=== PATIENT | female | born 1935 | race Caucasian/White ===

== ENCOUNTER 2022-02-16 19:16 | Emergency (ER) | payer OTHER ==
--- OUTSIDE RECORDS SUMMARY | 2022-02-16 19:20 | XMS REPORT | Continuity of Care Document ---
:1935 Author Organization [facility] t Address [address] [place] [address] Care Team Providers Name Role Phone AudeliaJulissa Prabhakar Primary Care Physician Unavailable Problems Condition Condition Condition Status Onset Resolution Last Treating Co mments Source Name Details Category Date Date Treatment Clinician Date Diplopia Diplopia Disease Active Metho di 12-25 00:00: Hospita 00 l Screening Screening Problem Active Com mon mammogram, mammogram, Sp rodney encounter encounter - CH I for for [facility] Pancreatic Pancreatic Problem Active C ommon cyst cyst [facility] Chronic Chronic Problem Active Common sinusitis sinusitis Spir it [facility] Other Other Problem Active Common osteoporos osteoporos Sp rodney is is [facility] Chronic Chronic Problem Active Common generalize generalize Sp rodney d pain d pain [facility] CKD CKD Problem Active Common (chronic (chronic [facility] kidney kidney - [facility] disease) disease) stage 3, stage 3[facility] GFR 30-59 GFR 30-59 Medi juany ml/min ml/min [place] [facility]por[facility] 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) [facility] Acquired Acquired Problem Active Commo n hypothyroi hypothyroi Sp rodney dism dism [facility] GERD GERD Problem Active Common (gastroeso (gastroeso Sp ordney phageal phageal - [facility]I reflux reflux St disease) disease) [facility] Anemia Anemia Problem Active Common [facility] Primary Primary Problem Active Common insomnia insomnia [facility] Hyperlipid Hyperlipid Diagnosis Active Common emia emia [facility] Seasonal Seasonal Problem Active Commo n allergic allergic Spirit rhinitis, rhinitis, - CH I unspecifie unspecifie St d trigger d [facility] Constipati Constipati Problem Active C ommon on on [facility] Insomnia Insomnia Problem Active Commo n [facility] HTN HTN Problem Active Common (hypertens (hypertens Sp rodney ion) ion) [facility] Arthralgia Arthralgia Problem Active C ommon [facility] Rheumatoid Rheumatoid Problem Active C ommon arthritis arthritis Spir it involving involving - [facility] I both both [facility] Center rheumatoid rheumatoid factor factor presence presence Anemia of Anemia of Problem Active Com mon chronic chronic Spirit disease disease - [facility] Allergies, Adverse Reactions, Alerts Allergy Allergy Status Severity Reaction(s) Onset Inactive Treating Comm ents Source Name Type Date Date Clinician Bacitrac Propensi Active Itching Metho di in ty to 12-25 adverse 00:00: Hospita reaction 00 l s to drug Ciproflo Propensi Active GI Method i xacin ty to Intolerance 12-25 adverse 00:00: Hospita reaction 00 l s to drug Suprax Adverse Active Info Not Common Reaction Available Spiri [facility] Family History Family Member Diagnosis Comments Start Date Stop Date Source Natural father Kidney disease [facility] Natural mother Stroke [facility] Social History Social Habit Start Date Stop Date Quantity Comments Source Sex Assigned At [birth year] [facility] 00:00:00 00:00:00 Smoking Status Start Date Stop Date Source Never smoked tobacco [facility] ospital Medications Ordered Filled Start Stop Current Ordering Indication Dosage Frequency Signature Comments Components Source Medication Medication Date Date Medication? Clinician (SIG) Name Name acetaminoph Yes 500mg Q6H Take 500 M ethodi en 8-[address] (TYLENOL) 08:19: mouth Hospita 500 MG 00 every 6 l tablet (six) hours as needed for mild pain. spironolact Yes 25mg QD Take 25 mg Methodi one 8-[address] (ALDACTONE) 08:19: daily. Hosp lotus 25 MG 00 l tablet atorvastati Yes 5mg QD Take 5 mg M ethodi n (LIPITOR) 12-[address] 10 MG 08:19: daily. Hospita tablet 00 l olmesartan Yes 40mg QD Take 40 mg M ethodi (BENICAR) - by mouth st 40 MG 08:19: daily. Hospita tablet 00 l fluticasone Yes 1{spray QD 1 spray Methodi (FLONASE) 12-25 } into each st 50 08:19: nostril Hospita mcg/actuati 00 daily. l on nasal spray multivitami Yes 1{tbl} QD Take 1 Me thodi n with 12-[address] minerals 08:19: mouth Hospita tablet 00 daily. l omeprazole Yes 40mg QD Take 40 mg M ethodi (PriLOSEC) 12-[address] 40 MG 08:19: daily. Hospita capsule 00 l levothyroxi Yes TK 1 T PO M ethodi ne 8-[address] (SYNTHROID, 00:00: Hospit a LEVOTHROID) 00 l 25 MCG tablet amitriptyli Yes TK 1 T PO M ethodi ne-chlordia 7-[address] zepoxide 00:00: INSOMNIA Hospi ta (LIMBITROL) 00 l 12.5-5 mg per tablet Synthroid Synthroid Yes Na Adame 1 tablet Common on an Spirit empty - [facility] stomach in [facility] Flonase Flonase Yes Na Adame 2 spray in Common each Spirit nostril - [facility] Norvas Norvas Yes Na Adame 1 tablet Co [facility] Zantac 150 Zantac 150 Yes Na Adame 1 tablet Common Maximum Maximum at bedtime Spi rit Strength Strength [facility] Chlordiazep Chlordiazep Yes Na Adame 1 tablet Common oxide-Amitr oxide-Amitr S pirit iptyline iptyline [facility] Lipitor Lipitor Yes Na Adame 1 tablet Co mmon [facility] Zyrtec Zyrtec Yes Na Adame 1 tablet Comm on Allergy Allergy [facility] Benicar Benicar Yes Na Adame 1 tablet Co mmon [facility] Spironolact Spironolact Yes Na Adame 1 tablet Common one one with food [facility] Procedures This patient has no known procedures. Plan of Care Planned Activity Planned Date Details Comments Source Future Scheduled 2022-01-03 HEPATITIS B VACCINES Met [facility] Test 07:13:44 (1 of 3 - 3-dose series) [code = HEPATITIS B VACCINES (1 of 3 - 3-dose series)] Future Scheduled 2022-01-03 COVID-19 VACCINE (#1) [facility] Test 07:13:44 [code = COVID-19 VACCINE (#1)] Future Scheduled 2022-01-03 SHINGLES VACCINES (1 Met [facility] Test 07:13:44 of 2) [code = SHINGLES VACCINES (1 of 2)] Future Scheduled 2022-01-03 65+ [address]NEUM[address] [facility] Test 07:13:44 VACCINE (1 - PCV) [code = 65+ PNEUMOCOCCAL VACCINE (1 - PCV)] Future Scheduled 2022-01-03 INFLUENZA VACCINE Method [facility] Test 07:13:44 [code = INFLUENZA VACCINE] Encounters Start End Encounter Admission Attending Care Care Encounter Source Date/Time Date/Time Type Type Clinicians Facility Department ID 2018-04-23 2018-04-23 Outpatient Stacy Knight [id number] Common 14:30:00 14:30:[facility] [place] [facility] [facility] 2018-01-27 2018-01-27 Outpatient Stacy Knight [id number] Common 14:45:00 14:45:00 [place] [place] [address] [facility] 2017-11-18 2017-11-18 [place] [id number] Common 09:29:00 09:29:00 [place] [address] [facility] 2017-11-17 2017-11-17 Outpatient Braz[facility]essa [facility] [id number] Common 11:26:00 11:26:00 [place] [address] [facility] 2017-11-17 2017-11-17 Outpatient B[facility]essa [facility] [id number] Common 08:30:00 08:30:00 t [facility] it Drive [facility] 2017 2017 Outpatient Stacy Knight [id number] Common 15:15:00 15:15:00 [facility] it Drive [facility] Results This patient has no known results.
[2022-02-16] MEDS ORDERED: ONDANSETRON 4 MG/2 ML VIAL ONE (20:22)
[2022-02-16] MEDS ORDERED: NA CHLORIDE 0.9% 500 ML ONE (20:22)
[2022-02-16] MEDS ORDERED: FAMOTIDINE 20 MG/2 ML VIAL IV ONE (20:22)
[2022-02-16 20:30] LABS: Absolute Lymphocytes (CBC) 0.8 K/uL (0.7-4.9); Hematocrit 32.4 % (36.0-45.0); Lymphocytes % 5.2 % (15.3-44.8); MCV 91.8 fL (80-100); MPV 7.4 fL (7.6-11.3); RBC Red Blood Cell Count 3.53 M/uL (3.86-4.86)
[2022-02-16 20:43] LABS: Albumin 3.2 g/dL (3.4-5.0); Bilirubin Total 0.7 mg/dL (0.2-1.0); Potassium 3.9 mmol/L (3.5-5.1); Protein, Total 6.9 g/dL (6.4-8.2)
--- NOTE | 2022-02-16 21:56 | RAD REPORT ---
EXAM DESCRIPTION: CT - Abdomen Pelvis Wo Contrast - 02/16/2022 9:24 pm CLINICAL HISTORY: Abdominal pain COMPARISON: 2020 TECHNIQUE: Computed axial tomography of the abdomen and pelvis was obtained. IV and oral contrast we re not requested. All CT scans are performed using dose optimization technique as appropriate and may include automated exposure control or mA/KV adjustment according to patient size. FINDINGS: The evaluation of solid organs, vessels and bowel is limited secondary to the lack of con trast administration. Moderate left lower lobe opacities. Very large hiatal hernia. 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 Marked gastric dilat ation is present. Esophagus is dilated The liver, spleen, pancreas, adrenals and kidneys appear grossly normal. Cholecystectomy. Rectum is mildly distended with stool. Moderate amount of stool within the left and transverse colon. IMPRESSION: Very large hiatal hernia. 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 Marked gastric dilatation is present. There probably is a distal gastric obstruction within the hernia. Moderate left lower lobe opacities may represent aspiration pneumonitis
--- NOTE | 2022-02-16 22:17 | ER ---
Nurse's Notes [facility] Name: Blane Armstrong Age: 86 yrs Sex: Female : 1935 Arrival Date: 02/16/2022 Time: 19:24 Bed 4 Private MD: Diagnosis: Hiatal Hernia;Chronic Gastric Volvulus;Vomiting Presentation: 02/16 19:25 Chief complaint: EMS states: Felling weak since last Friday with episodes of emesis, ke1 Oxy 86% on EMS arrival which increases on 3 L pNC. Coronavirus screen: Vaccine status: Patient reports receiving the 2nd dose of the covid vaccine. Ebola Screen: No symptoms or risks identified at this time. Initial Sepsis Screen: Does the patient meet any 2 criteria? Systolic BP < 90 mmHg. Mean Arterial Pressure (MAP) < 65. Yes Does the patient have a suspected source of infection? No. Patient's initial sepsis screen is negative. Risk Assessment: Do you want to hurt yourself or someone else? Patient reports no desire to harm self or others. Onset of symptoms was February 15, 2022. 19:25 Method Of Arrival: EMS: [facility] ke1 19:25 Acuity: BRIANA 3 ke1 Triage Assessment: 19:31 General: Appears in no apparent distress. Behavior is appropriate for age. Pain: Denies ke1 pain. Neuro: Level of Consciousness is awake, alert, Oriented to person, place, time, situation. Historical: - Allergies: 19:28 No Known Allergies; ke1 - PMHx: 19:28 Hypertensive disorder; Arthritis; high cholesterol; ke1 - PSHx: 19:28 R hip replacement; Cholecystectomy; ke1 - Immunization history:: Client reports receiving the 2nd dose of the Covid vaccine. - Social history:: Smoking status: Patient denies any tobacco usage or history of. Screenin:31 Abuse screen: Denies threats or abuse. Nutritional screening: No deficits noted. ke1 Tuberculosis screening: No symptoms or risk factors identified. Fall Risk No fall in past 12 months (0 pts). Secondary diagnosis (15 points) states she is weak. No IV (0 pts). Ambulatory Aid- None/Bed Rest/Nurse Assist (0 pts). Gait- Normal/Bed Rest/Wheelchair (0 pts) Mental Status- Oriented to own ability (0 pts). Total Cotter Fall Scale indicates No Risk (0-24 pts). Assessment: 21:00 Reassessment: Patient and/or family updated on plan of care and expected duration. Pain ke1 level reassessed. Patient is alert, oriented x 3, equal unlabored respirations, skin warm/dry/pink. 22:00 Reassessment: No changes from previously documented assessment. ke1 23:01 Reassessment: No changes from previously documented assessment. ke1 23:45 Pain: Complains of pain in LUQ Pain currently is 6 out of 10 on a pain scale. at worst ke1 was 10 out of 10 on a pain scale. level that patient reports is acceptable is 3 out of 10 on a pain scale. 02/17 03:44 Reassessment: report given to Angeline Bueno at [facility]. ke1 04:18 Reassessment: patient pulled out NG tube confusing it for NC, no return from NG tube ke1 for about an hour now, EMS will notify nurse on arrival. R AC IV infiltrated, patient denies pain, IV stopped. 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 Nevertheless, she does not want to call them at this time because it is too early, so she is sending message. EMS agents very patient and cooperative with patient. Vital Signs: 02/16 19:25 BP 88 / 49; Pulse 87; Resp 19; Temp 97.8(O); Pulse Ox 97% on 3 lpm NC; Weight 49.9 kg; ke1 Height 5 ft. 2 in. (157.48 cm); Pain 0/10; 20:31 BP 97 / 57; Pulse 71; Resp 17; Pulse Ox 98% on 3 lpm NC; ke1 22:58 BP 98 / 63; Pulse 77; Resp 17; Pulse Ox 98% on 3 lpm NC; Pain 0/10; ke1 23:39 BP 92 / 61; Pulse 67; Resp 17; Pulse Ox 100% ; ke1 02/17 00:15 Pain 0/10; ke1 00:15 BP 100 / 86; Pulse 70; Resp 17; Temp 98.0(O); Pulse Ox 98% on 3 lpm NC; mm9 01:00 BP 105 / 92; Pulse 85; Resp 18; Temp 97.8(O); Pulse Ox 98% on 3 lpm NC; mm9 02:26 BP 116 / 53; Pulse 62; Resp 17; Pulse Ox 100% on 3 lpm NC; ke1 02/16 19:25 Body Mass Index 20.12 (49.90 kg, 157.48 cm) ke1 ED Course: 02/16 19:24 Patient arrived in ED. ke1 19:24 Veena Godinez, RN is Primary Nurse. ke1 19:28 Triage completed. ke1 19:31 Arm band placed on right wrist. ke1 19:31 Placed in gown. Bed in low position. Call light in reach. Side rails up X 1. Side rails ke1 up X2. 19:32 Bry Woods DO is Attending Physician. ms3 20:30 Inserted saline lock: 20 gauge in right antecubital area, using aseptic technique. ke1 20:30 CBC with Diff Sent. ke1 20:30 CMP Sent. ke1 20:30 Lipase Sent. ke1 21:24 Abdomen In Process Unspecified. EDMS 02/17 01:12 NGT: inserted 12 Fr. via right nare. ke1 01:15 NGT: to intermittent suction. ke1 01:37 Abdomen 1 View (KUB) XRAY In Process Unspecified. EDMS 02:00 Inserted saline lock: 20 gauge in left antecubital area, using aseptic technique. ke1 02:10 Notified ED physician of a critical lab result(s). lactate of 4.6 Dr Woods notified. bb 03:14 Blood Culture Adult (2) Sent. ke1 04:15 NGT: Returned gastric contents. 1800 ml. ke1 04:30 No provider procedures requiring assistance completed. ke1 04:30 Patient transferred, IV remains in place. ke1 Administered Medications: 02/16 20:30 Drug: NS 0.9% 500 ml Route: IV; Rate: 1 bolus; Site: right antecubital; ke1 21:00 Follow up: IV Status: Completed infusion ke1 20:30 Drug: Pepcid (famotidine) 20 mg Route: IVP; Site: right antecubital; ke1 21:00 Follow up: Response: Marked relief of symptoms ke1 20:30 Drug: Zofran (Ondansetron) 4 mg Route: IVP; Site: right antecubital; ke1 21:00 Follow up: Response: Nausea is decreased ke1 23:42 CANCELLED (Physician Discretion): morphine 4 mg IVP once over 4 mins ms3 23:57 Drug: fentaNYL (PF) 50 mcg Route: IVP; Site: right antecubital; ke1 02/17 00:15 Follow up: Pain 0/10 Adult; Response: Pain is decreased ke1 02/16 23:58 Drug: NS 0.9% 1000 ml Route: IV; Rate: 125 ml/hr; Site: right antecubital; ke1 02/17 02:14 Drug: NS 0.9% 1000 ml Route: IV; Rate: 1000 ml; Site: right antecubital; ke1 03:14 Drug: Zosyn (piperacillin-tazobactam) 3.375 grams Route: IVPB; Infused Over: 60 mins; ke1 Site: right antecubital; 04:14 Follow up: Response: No adverse reaction; IV Status: Completed infusion ke1 Medication: 04:30 VIS not applicable for this client. ke1 Outcome: 02/16 22:16 ER care complete, transfer ordered by . ms3 02/17 04:36 Patient left the ED. bb 04:50 Transferred by ground EMS to [facility]. ke1 04:50 Condition: stable 04:50 Instructed on the need for admit. Signatures: Dispatcher [employer] EDClaribel Diaz RN RN bb Sims, Marcus, DO DO ms3 Veena Godinez RN RN ke1 Martinez, Maria mm9 Corrections: (The following items were deleted from the chart) 02/16 19:33 19:31 Fall Risk None identified. ke1 ke1
--- NOTE | 2022-02-16 22:17 | EDPHYS ---
Physician Documentation [facility] Name: Blane Armstrong Age: 86 yrs Sex: Female : 1935 Arrival Date: 02/16/2022 Time: 19:24 Bed 4 Private MD: ED Physician Bry Woods HPI: 02/16 23:39 This 86 yrs old Female presents to ER via EMS with complaints of abdominal pain, ms3 vomiting. 23:39 86-year-old female with past medical history of hypertension, arthritis, hyperlipidemia ms3 presents for abdominal pain, weakness, vomiting that is been ongoing for 2 days. Patient states pain is a 5/10 and described as cramping. Patient states pain is constant. Patient endorses chills. Patient denies fevers. Patient denies alleviating or inciting factors.. Historical: - Allergies: 19:28 No Known Allergies; ke1 - PMHx: 19:28 Hypertensive disorder; Arthritis; high cholesterol; ke1 - PSHx: 19:28 R hip replacement; Cholecystectomy; ke1 - Immunization history:: Client reports receiving the 2nd dose of the Covid vaccine. - Social history:: Smoking status: Patient denies any tobacco usage or history of. ROS: 23:39 Neck: Negative for injury, pain, and swelling, Cardiovascular: Negative for chest pain, ms3 and palpitations. Respiratory: Negative for shortness of breath, cough, wheezing, and pleuritic chest pain. 23:39 MS/Extremity: Negative for injury and deformity, Skin: Negative for injury, rash, and discoloration. 23:39 Constitutional: Positive for chills. 23:39 Abdomen/GI: Positive for abdominal pain, nausea and vomiting. 23:39 All other systems are negative. Exam: 23:39 Constitutional: This is a well developed, well nourished patient who is awake, alert, ms3 and in no acute distress. Head/Face: Normocephalic, atraumatic. Neck: Trachea midline, no cervical lymphadenopathy. Supple, full range of motion without nuchal rigidity, or vertebral point tenderness. No Meningismus. Chest/axilla: Normal chest wall appearance and motion. Nontender with no deformity. Cardiovascular: Regular rate and rhythm with a normal S1 and S2. No gallops, murmurs, or rubs. Normal PMI, no JVD. No pulse deficits. Respiratory: Lungs have equal breath sounds bilaterally, clear to auscultation and percussion. No rales, rhonchi or wheezes noted. No increased work of breathing, no retractions or nasal flaring. 23:39 Skin: Warm, dry with normal turgor. Normal color with no rashes, no lesions, and no evidence of cellulitis. MS/ Extremity: Pulses equal, no cyanosis. Neurovascular intact. Full, normal range of motion. Psych: Awake, alert, with orientation to person, place and time. Behavior, mood, and affect are within normal limits. 23:39 Abdomen/GI: Inspection: abdomen appears normal, Bowel sounds: active, Palpation: moderate abdominal tenderness, in the right upper quadrant and left upper quadrant. Vital Signs: 19:25 BP 88 / 49; Pulse 87; Resp 19; Temp 97.8(O); Pulse Ox 97% on 3 lpm NC; Weight 49.9 kg; ke1 Height 5 ft. 2 in. (157.48 cm); Pain 0/10; 20:31 BP 97 / 57; Pulse 71; Resp 17; Pulse Ox 98% on 3 lpm NC; ke1 22:58 BP 98 / 63; Pulse 77; Resp 17; Pulse Ox 98% on 3 lpm NC; Pain 0/10; ke1 23:39 BP 92 / 61; Pulse 67; Resp 17; Pulse Ox 100% ; ke1 02/17 00:15 Pain 0/10; ke1 00:15 BP 100 / 86; Pulse 70; Resp 17; Temp 98.0(O); Pulse Ox 98% on 3 lpm NC; mm9 01:00 BP 105 / 92; Pulse 85; Resp 18; Temp 97.8(O); Pulse Ox 98% on 3 lpm NC; mm9 02:26 BP 116 / 53; Pulse 62; Resp 17; Pulse Ox 100% on 3 lpm NC; ke1 02/16 19:25 Body Mass Index 20.12 (49.90 kg, 157.48 cm) ke1 MDM: 02/16 19:42 Patient medically screened. ms3 23:38 ED course: Discussed case with Dr Kulkarni and he will consult on patient.. ms3 23:39 Differential diagnosis: gastritis, gastroesophageal reflux disease, non-specific abd ms3 pain, Bowel obstruction. Data reviewed: vital signs, nurses notes, lab test result(s), radiologic studies, and as a result, I will Transfer. Counseling: I had a detailed discussion with the patient and/or guardian regarding: the historical points, exam findings, and any diagnostic results supporting the discharge/admit diagnosis, lab results, radiology results, the need to transfer to another facility. 02/17 02:10 ED course: Patient's lactic acid elevated at this time. No source of infection ms3 identified at this time.. 02:24 ED course: Discussed case with Dr Still and he accepts patient to RTU.. ms3 02/16 19:41 Order name: CBC with Diff; Complete Time: 22:09 ms3 02/16 19:41 Order name: CMP; Complete Time: 22:09 ms3 02/16 19:41 Order name: Lipase; Complete Time: 22:09 ms3 02/16 19:41 Order name: Urine Microscopic Only ms3 02/16 22:42 Order name: SARS RAPID; Complete Time: 00:13 bb 02/16 22:43 Order name: SARS RAPID ke1 02/16 20:48 Order name: Abdomen ; Complete Time: 22:09 EDMS 02/16 23:32 Order name: Lactate; Complete Time: 02:19 ms3 02/16 23:38 Order name: Abdomen 1 View (KUB) XRAY ms3 02/17 02:11 Order name: Blood Culture Adult (2) ms3 02/17 03:42 Order name: Urine Culture EDMS 02/16 19:41 Order name: IV Saline Lock; Complete Time: 20:30 ms3 02/16 19:41 Order name: Labs collected and sent; Complete Time: 20:30 ms3 02/16 23:38 Order name: Nasogastric Tube; Complete Time: 03:37 ms3 02/17 03:15 Order name: Straight Cath - Urine; Complete Time: 03:37 ke1 Administered Medications: 02/16 20:30 Drug: NS 0.9% 500 ml Route: IV; Rate: 1 bolus; Site: right antecubital; ke1 21:00 Follow up: IV Status: Completed infusion ke1 20:30 Drug: Pepcid (famotidine) 20 mg Route: IVP; Site: right antecubital; ke1 21:00 Follow up: Response: Marked relief of symptoms ke1 20:30 Drug: Zofran (Ondansetron) 4 mg Route: IVP; Site: right antecubital; ke1 21:00 Follow up: Response: Nausea is decreased ke1 23:42 CANCELLED (Physician Discretion): morphine 4 mg IVP once over 4 mins ms3 23:57 Drug: fentaNYL (PF) 50 mcg Route: IVP; Site: right antecubital; ke1 02/17 00:15 Follow up: Pain 0/10 Adult; Response: Pain is decreased ke1 02/16 23:58 Drug: NS 0.9% 1000 ml Route: IV; Rate: 125 ml/hr; Site: right antecubital; ke1 02/17 02:14 Drug: NS 0.9% 1000 ml Route: IV; Rate: 1000 ml; Site: right antecubital; ke1 03:14 Drug: Zosyn (piperacillin-tazobactam) 3.375 grams Route: IVPB; Infused Over: 60 mins; ke1 Site: right antecubital; 04:14 Follow up: Response: No adverse reaction; IV Status: Completed infusion ke1 Disposition Summary: 02/16/22 22:16 Transfer Ordered Transfer Location: [facility] ms3 Reason: Higher level of care ms3 Condition: Stable ms3 Problem: new ms3 Symptoms: are unchanged ms3 Accepting Physician: (02/17/22 04:36) tomy Diagnosis - Hiatal Hernia ms3 - Chronic Gastric Volvulus ms3 - Vomiting ms3 Forms: - Medication Reconciliation Form ms3 - SBAR form ms3 Signatures: Dispatcher [employer] EDMS Claribel Tobar, RN RN rBy Eldridge DO DO ms3 Veena Godinez RN RN ke1 Corrections: (The following items were deleted from the chart) 02/16 20:48 20:38 Abdomen ordered. EDMS EDMS 23:42 23:06 morphine 4 mg IVP once over 4 mins ordered. ms3 ms3 02/17 04:36 02/16 22:16 Dr [email or web address] tomy
[2022-02-16] MEDS ORDERED: FENTANYL CITR 100 MCG/2 ML ONE (23:46)
[2022-02-16] MEDS ORDERED: NA CHLORIDE 0.9% 1,000 ML ONE (23:47)
[2022-02-17 00:01] LABS: SARS-CoV-2 Antigen Rapid Res Negative (Negative)
[2022-02-17] MEDS ORDERED: PIPERACIL/TAZO 3.375 GM VIAL IV ONE (01:54)
[2022-02-17] MEDS ORDERED: NA CHLORIDE 0.9% 100 ML IV ONE (01:54)
[2022-02-17] MEDS ORDERED: NA CHLORIDE 0.9% 1,000 ML ONE (01:54)
[2022-02-17 03:38] LABS: Urine Bacteria <20 /HPF (<20); Urine Mucus Slight /HPF (None Seen); Urine RBC <5 /HPF (None Seen)
[2022-02-17 05:15] VITALS: TEMP 97.8
[2022-02-17 05:16] VITALS: BP 116/53; O2SAT 100
--- NOTE | 2022-02-18 10:35 | RAD REPORT ---
EXAM DESCRIPTION: RAD - Abdomen 1 View (KUB) - 02/17/2022 1:35 am ADDENDUM #1 These findings were discussed with Mark Michelle RN on 02/16/2022 at 2: 47 AM central time Electronically signed by: Karen Barrow DO 02/17/2022 3:43 AM CDT End of Addendum EXAM DESCRIPTION: X-ray abdomen 1 view CLINICAL HISTORY: 86 years Female NG TUBE PLACEMENT TECHNIQUE: 1 x-ray view of the abdomen was performed on 02/17/2022 and 1:22 AM. COMPARISON: Report from a prior CT abdomen and pelvis performed on 12/21/2020. The images were not av ailable for review. FINDINGS: The bowel gas pattern is nonspecific and nonobstructive. There is moderate fecal residu e scattered throughout the colon. There are surgical clips in the right upper quadrant consistent with prior cholecystectomy. There is a punctate calcification in the left mid abdomen possibly representing a renal calculus. No abnormal air collections are identified. There is an opacity containing air in the right inferior hemithorax most compatible with a known larg e hiatal hernia. The tip of the feeding tube extends to the level of T8 and does not appear to extend into the hiatal hernia. Recommend advancement of the catheter. There is moderate dextroscoliosis of the lumbar spine. There is partial visualization of the right hi p arthroplasty. IMPRESSION: 1. Known large hiatal hernia. The tip of the feeding tube extends to the level of T8 a nd does not appear to extend into the hiatal hernia. Recommend advancement of the catheter. 2. Nonspecific and nonobstructive bowel gas pattern. 3. Moderate dextroscoliosis of the lumbar spine. 4. Prior cholecystectomy. 5. Possible punctate left renal calculus. Electronically signed by: Karen Barrow DO 02/17/2022 2:40 AM CDT ADDENDUM #1 These findings were discussed with Mark Michelle RN on 02/16/2022 at 2: 47 AM central time Electronically signed by: Karen Barrow DO 02/17/2022 3:43 AM CDT End of Addendum ADDENDUM #1 These findings were discussed with Mark Michelle RN on 02/16/2022 at 2: 47 AM central time Electronically signed by: Karen Barrow DO 02/17/2022 3:43 AM CDT End of Addendum EXAM DESCRIPTION: X-ray abdomen 1 view CLINICAL HISTORY: 86 years Female NG TUBE PLACEMENT TECHNIQUE: 1 x-ray view of the abdomen was performed on 02/17/2022 and 1:22 AM. COMPARISON: Report from a prior CT abdomen and pelvis performed on 12/21/2020. The images were not av ailable for review. FINDINGS: The bowel gas pattern is nonspecific and nonobstructive. There is moderate fecal residu e scattered throughout the colon. There are surgical clips in the right upper quadrant consistent with prior cholecystectomy. There is a punctate calcification in the left mid abdomen possibly representing a renal calculus. No abnormal air collections are identified. There is an opacity containing air in the right inferior hemithorax most compatible with a known larg e hiatal hernia. The tip of the feeding tube extends to the level of T8 and does not appear to extend into the hiatal hernia. Recommend advancement of the catheter. There is moderate dextroscoliosis of the lumbar spine. There is partial visualization of the right hi p arthroplasty. IMPRESSION: 1. Known large hiatal hernia. The tip of the feeding tube extends to the level of T8 a nd does not appear to extend into the hiatal hernia. Recommend advancement of the catheter. 2. Nonspecific and nonobstructive bowel gas pattern. 3. Moderate dextroscoliosis of the lumbar spine. 4. Prior cholecystectomy. 5. Possible punctate left renal calculus. Electronically signed by: Karen Barrow DO 02/17/2022 2:40 AM CDT Due to temporary technical issues with the PACS/Fluency reporting system, reports are being signed by the in house radiologists without review as a courtesy to insure prompt reporting. The interpreting radiologist is fully responsible for the content of the report.
== END 2022-02-17 04:36 | disposition short-term general hospital (02) ==
LOC: ER 19:16
DX: K44.9 Diaphragmatic hernia without obstruction or gangrene (principal); K31.89 Other diseases of stomach and duodenum; R11.10 Vomiting, unspecified; I10 Essential (primary) hypertension; Z20.822 Contact with and (suspected) exposure to COVID-19
CPT/HCPCS: 96365; 87040 ×2; 87088; 85025; 87086; 36415; 83605; 81015; 83690; 80053; 74176; 74018; 96375; 99285; 87811; J2543; J3010; J7040; J7030 ×2; J2405

== ENCOUNTER 2023-09-29 13:00 | Emergency (ER) | payer OTHER ==
[2023-09-29] MEDS ORDERED: HYDRALAZINE HCL 25 MG TABLET ONE (13:45)
[2023-09-29 14:11] LABS: Absolute Lymphocytes (CBC) 1.3 K/uL (0.7-4.9); Absolute Monocytes 0.3 K/uL (0.1-1.3); Absolute Neutrophil 4.2 K/uL (1.8-8.0); Basophils % 0.4 % (0-1.3); Eosinophils % 0.5 % (0-4.4); Hematocrit 38.4 % (36.0-45.0); Hemoglobin 12.8 g/dL (12.0-15.0); Lymphocytes % 22.2 % (15.3-44.8); MCH 34.2 pg (27.0-35.0); MCHC 33.3 g/dL (32.0-36.0); MCV 102.9 fL (80-100); MPV 7.8 fL (7.6-11.3); Monocytes % 4.5 % (3.3-12.3); Neutrophils % 72.4 % (41.7-73.7); Platelets 271 thou/uL (152-406); RBC Red Blood Cell Count 3.73 M/uL (3.86-4.86); Red Cell Distribution Width 13.4 % (12.1-15.2)
[2023-09-29 14:32] LABS: Albumin 3.7 g/dL (3.4-5.0); Albumin/Globulin Ratio 0.9 (1.1-1.8); Anion Gap 6.5 mEq/L (5.0-15.0); Bilirubin Direct 0.2 mg/dL (0-0.2); Bilirubin Indirect, Calculated 0.3 mg/dL (0.2-0.8); Bilirubin Total 0.5 mg/dL (0.2-1.0); Magnesium 2.6 mg/dL (1.6-2.4); Potassium 4.5 mEq/L (3.5-5.1); Protein, Total 7.7 g/dL (6.4-8.2); Troponin High Sensitivity 43.4 pg/mL (<58.9)
[2023-09-29 15:11] LABS: Specific Gravity 1.007 (1.005-1.030); Sqamous Epithelial None Seen /HPF (None Seen); Urine Bacteria None Seen /HPF (<20); Urine Bilirubin NEGATIVE (Negative); Urine Blood Negative (Negative); Urine Clarity Turbid (Clear); Urine Color Colorless (Yellow); Urine Culture Reflex Order NOT NEEDED; Urine Glucose NEGATIVE (Negative); Urine Ketones NEGATIVE (Negative); Urine Micro Reflex YN NO BILL MICROSCOPIC; Urine Mucus Slight /HPF (None Seen); Urine Nitrite NEGATIVE (Negative); Urine Protein NEGATIVE (Negative); Urine RBC <5 /HPF (None Seen); Urine Urobilinogen Normal (Normal); Urine WBC <5 /HPF (<5)
--- NOTE | 2023-09-29 15:33 | EDPHYS ---
Physician Documentation [facility] Name: Blane Armstrong Age: 87 yrs Sex: Female : 1935 Arrival Date: 09/29/2023 Time: 13:00 Bed 17 Private MD: ED Physician Tarik Lao HPI: 09/28 17:34 This 87 yrs old Female presents to ER via Ambulatory with complaints of High Blood rt Pressure. 17:34 Patient presents to the ED with reported hypertension. She has been having some burning rt with urination, went to an urgent care today where she was found to have hypertension was sent to the ED for further evaluation. Patient recently had her blood pressure medications changed. Denies chest pain, dizziness, denies other acute complaints, symptoms are moderate in severity, no other aggravating or alleviating factors.. Historical: - Allergies: 13:17 Suprax; cm10 13:17 Bacitracin; cm10 - Home Meds: 13:58 amlodipine 5 mg tablet 1 tab daily [Active]; atorvastatin 20 mg oral tablet 1 tab daily tl4 [Active]; levothyroxine 50 mcg tablet 1 tabs daily [Active]; prednisone 1 mg Oral tablet 4 tabs daily [Active]; hydralazine 25 mg Oral tablet 1 tabs 3 times per day [Active]; carvedilol 6.25 mg oral tablet 1 tab [Active]; - PMHx: 13:17 Arthritis; High Cholesterol; Hypertensive disorder; Chronic kidney disease- Stage 3; cm10 - PSHx: 13:17 Cholecystectomy; R hip replacement; cm10 - Immunization history:: Adult Immunizations up to date. - Infectious Disease History:: Denies. - Social history:: Smoking status: Patient denies any tobacco usage or history of. - Family history:: not pertinent. ROS: 17:34 Constitutional: Negative for fever, chills, and weight loss, Cardiovascular: Negative rt for chest pain, palpitations, and edema, Respiratory: Negative for shortness of breath, cough, wheezing, and pleuritic chest pain, Abdomen/GI: Negative for abdominal pain, nausea, vomiting, diarrhea, and constipation, MS/Extremity: Negative for injury and deformity, 17:34 : Positive for burning with urination, Incontinence, Exam: 17:34 Constitutional: This is a well developed, well nourished patient who is awake, alert, rt and in no acute distress. Head/Face: Normocephalic, atraumatic. Chest/axilla: Normal chest wall appearance and motion. Nontender with no deformity. No lesions are appreciated. Cardiovascular: Regular rate and rhythm with a normal S1 and S2. No gallops, murmurs, or rubs. Normal PMI, no JVD. No pulse deficits. Respiratory: Lungs have equal breath sounds bilaterally, clear to auscultation and percussion. No rales, rhonchi or wheezes noted. No increased work of breathing, no retractions or nasal flaring. Abdomen/GI: Soft, non-tender, with normal bowel sounds. No distension or tympany. No guarding or rebound. No evidence of tenderness throughout. MS/ Extremity: Pulses equal, no cyanosis. Neurovascular intact. Full, normal range of motion. Neuro: Awake and alert, GCS 15, oriented to person, place, time, and situation. Cranial nerves II-XII grossly intact. Motor strength 5/5 in all extremities. Sensory grossly intact. Cerebellar exam normal. Normal gait. 17:34 : Skin irritation surrounding urethral meatus, 17:34 ECG was reviewed by the Attending Physician. rt Vital Signs: 13:16 BP 216 / 90; Pulse 68; Resp 18; Temp 97.1; Pulse Ox 98% on R/A; Weight 46.72 kg (R); cm10 Height 5 ft. 0 in. (R); Pain 0/10; 13:30 BP 178 / 80; Pulse 60; Resp 16; Pulse Ox 96% on R/A; tl4 14:00 BP 148 / 61; Pulse 64; Resp 16; Pulse Ox 98% on R/A; tl4 14:30 BP 158 / 52; Pulse 62; Resp 22; Pulse Ox 97% on R/A; tl4 15:00 BP 140 / 55; Pulse 60; Resp 16; Pulse Ox 98% on R/A; Pain 0/10; tl4 15:30 BP 149 / 60; Pulse 59; Resp 16; Pulse Ox 98% on R/A; tl4 15:57 BP 139 / 51; Pulse 60; Resp 16; Temp 98.1(O); Pulse Ox 98% on R/A; Pain 0/10; tl4 13:16 Body Mass Index 20.12 (46.72 kg, 152.4 cm) cm10 13:16 Pain Scale: Adult cm10 15:00 Pain Scale: Adult tl4 15:57 Pain Scale: Adult tl4 MDM: 13:19 Patient medically screened. rt 17:34 Differential diagnosis: Essential hypertension, UTI, dermatitis. Data reviewed: vital rt signs, nurses notes. Consideration of Admission/Observation Escalation of care including admission/observation considered. No evidence of endorgan dysfunction on EKG, labs. Patient without UTI, likely dermatitis. Blood pressure is improving with treatment in the ED, she is stable to follow-up as an outpatient.. I considered the following discharge prescriptions or medication management in the emergency department Medications were administered in the Emergency Department. See MAR. Care significantly affected by the following chronic conditions: Hypertension. Counseling: I had a detailed discussion with the patient and/or guardian regarding the historical points, exam findings, and any diagnostic results supporting the discharge/admit diagnosis, lab results, the need for outpatient follow up. Response to treatment: the patient's symptoms have markedly improved after treatment. 09/28 13:40 Order name: Basic Metabolic Panel; Complete Time: 15:05 rt 09/28 13:40 Order name: CBC with Diff; Complete Time: 15:05 rt 09/28 13:40 Order name: LFT's; Complete Time: 15:05 rt 09/28 13:40 Order name: Magnesium; Complete Time: 15:05 rt 09/28 13:40 Order name: Troponin HS; Complete Time: 15:05 rt 09/28 13:40 Order name: UAM; Complete Time: 15:12 rt 09/28 13:40 Order name: EKG; Complete Time: 13:41 rt 09/28 13:40 Order name: Cardiac monitoring; Complete Time: 13:42 rt 09/28 13:40 Order name: EKG - Nurse/Tech; Complete Time: 15:43 rt 09/28 13:40 Order name: IV Saline Lock; Complete Time: 13:42 rt 09/28 13:40 Order name: Labs collected and sent; Complete Time: 13:42 rt 09/28 13:40 Order name: O2 Per Protocol; Complete Time: 13:42 rt 09/28 13:40 Order name: O2 Sat Monitoring; Complete Time: 13:42 rt EC:34 Rate is 65 beats/min. Rhythm is regular, Normal Sinus Rhythm with No ectopy. QRS [place] rt is Normal. [place] interval is normal. QRS interval is normal. QT interval is normal. No Q waves. T waves are Normal. No ST changes noted. Interpreted by me. Administered Medications: 13:54 Drug: HydrALAZINE PO 25 mg PO once Route: PO; tl4 15:44 Follow up: Response: No adverse reaction tl4 Disposition Summary: 09/29/23 15:32 Discharge Ordered Notes: Location: Home rt Problem: new rt Symptoms: have improved rt Condition: Stable rt Diagnosis - Essential (primary) hypertension rt - Diaper dermatitis rt Followup: rt - With: Private Physician - When: 5 - 6 days - Reason: Discharge Instructions: - Discharge Summary Sheet rt - Diaper Rash rt - Hypertension, Adult rt Forms: - Medication Reconciliation Form rt - Antibiotic Education rt - Prescription Opioid Use rt - Patient Portal Instructions rt - Leadership Thank You Letter rt Prescriptions: - Clotrimazole 1 % Topical Cream - Apply to affected area 1 application TOPICAL route every 12 hours; 15 gram; rt Refills: 0, Product Selection Permitted Signatures: Dispatcher [employer] Tarik Laughlin MD MD rt Lisbet Dang, RN RN cm10 Lane Hancock RN RN tl4
--- NOTE | 2023-09-29 15:33 | ER ---
Nurse's Notes [facility] Name: Blane Armstrong Age: 87 yrs Sex: Female : 1935 Arrival Date: 09/29/2023 Time: 13:00 Bed 17 Private MD: Diagnosis: Essential (primary) hypertension;Diaper dermatitis Presentation: 09/28 13:16 Chief complaint: Patient states: Was at urgent care for burning with urination but sent cm10 to the ED for elevated blood pressure. Coronavirus screen: Client denies travel out of the [place] in the last 14 days. At this time, the client does not indicate any symptoms associated with coronavirus-19. Ebola Screen: Patient denies travel to an Ebola-affected area in the 21 days before illness onset. No symptoms or risks identified at this time. Initial Sepsis Screen: Does the patient meet any 2 criteria? No. Patient's initial sepsis screen is negative. Does the patient have a suspected source of infection? No. Patient's initial sepsis screen is negative. Risk Assessment: Do you want to hurt yourself or someone else? Patient reports no desire to harm self or others. Onset of symptoms was September 29, 2023. 13:16 Method Of Arrival: Ambulatory cm10 13:16 Acuity: BRIANA 3 cm10 Triage Assessment: 13:18 General: Appears in no apparent distress. comfortable, Behavior is calm, cooperative. cm10 Pain: Denies pain. Neuro: No deficits noted. Level of Consciousness is awake, alert, obeys commands, Oriented to person, place, time, situation, Appropriate for age. : Reports burning with urination, incontinence. Historical: - Allergies: 13:17 Suprax; cm10 13:17 Bacitracin; cm10 - Home Meds: 13:58 amlodipine 5 mg tablet 1 tab daily [Active]; atorvastatin 20 mg oral tablet 1 tab daily tl4 [Active]; levothyroxine 50 mcg tablet 1 tabs daily [Active]; prednisone 1 mg Oral tablet 4 tabs daily [Active]; hydralazine 25 mg Oral tablet 1 tabs 3 times per day [Active]; carvedilol 6.25 mg oral tablet 1 tab [Active]; - PMHx: 13:17 Arthritis; High Cholesterol; Hypertensive disorder; Chronic kidney disease- Stage 3; cm10 - PSHx: 13:17 Cholecystectomy; R hip replacement; cm10 - Immunization history:: Adult Immunizations up to date. - Infectious Disease History:: Denies. - Social history:: Smoking status: Patient denies any tobacco usage or history of. - Family history:: not pertinent. Screenin:[address] [facility] ED Fall Risk Assessment (Adult) History of falling in the last 3 months, tl4 including since admission No falls in past 3 months (0 pts) Confusion or Disorientation No (0 pts) Intoxicated or Sedated No (0 pts) Impaired Gait No (0 pts) Mobility Assist Device Used No (0 pt) Altered Elimination No (0 pt) Score/Fall Risk Level 0 - 2 = Low Risk Oriented to surroundings, Maintained a safe environment, Educated pt \T\ family on fall prevention, incl call for assistance when getting out of bed, Assessed \T\ reinforced patient's understanding of fall precautions. Abuse screen: Denies threats or abuse. Denies injuries from another. Nutritional screening: No deficits noted. Tuberculosis screening: No symptoms or risk factors identified. Assessment: 13:55 General: Appears in no apparent distress. Behavior is calm, cooperative. Pain: Denies tl4 pain. Neuro: Level of Consciousness is awake, alert, obeys commands, Oriented to person, place, time, situation, Moves all extremities. Full function Speech is normal. Neuro: Denies weakness blurred vision dizziness, paresthesias numbness headache. Cardiovascular: Capillary refill < 3 seconds Patient's skin is warm and dry. Respiratory: Airway is patent Respiratory effort is even, unlabored, Respiratory pattern is regular, symmetrical. GI: No signs and/or symptoms were reported involving the gastrointestinal system. : Reports burning with urination, urinary frequency. EENT: No signs and/or symptoms were reported regarding the EENT system. Derm: No signs and/or symptoms reported regarding the dermatologic system. Musculoskeletal: No signs and/or symptoms reported regarding the musculoskeletal system. 14:30 Reassessment: No changes from previously documented assessment. Patient and/or family tl4 updated on plan of care and expected duration. Pain level reassessed. Patient is alert, oriented x 3, equal unlabored respirations, skin warm/dry/pink. Pt denies any needs at this time. Family at bedside. Will continue to monitor Patient denies pain at this time. 15:30 Reassessment: No changes from previously documented assessment. Patient and/or family tl4 updated on plan of care and expected duration. Pain level reassessed. Patient is alert, oriented x 3, equal unlabored respirations, skin warm/dry/pink. Patient denies pain at this time. Vital Signs: 13:16 BP 216 / 90; Pulse 68; Resp 18; Temp 97.1; Pulse Ox 98% on R/A; Weight 46.72 kg (R); cm10 Height 5 ft. 0 in. (R); Pain 0/10; 13:30 BP 178 / 80; Pulse 60; Resp 16; Pulse Ox 96% on R/A; tl4 14:00 BP 148 / 61; Pulse 64; Resp 16; Pulse Ox 98% on R/A; tl4 14:30 BP 158 / 52; Pulse 62; Resp 22; Pulse Ox 97% on R/A; tl4 15:00 BP 140 / 55; Pulse 60; Resp 16; Pulse Ox 98% on R/A; Pain 0/10; tl4 15:30 BP 149 / 60; Pulse 59; Resp 16; Pulse Ox 98% on R/A; tl4 15:57 BP 139 / 51; Pulse 60; Resp 16; Temp 98.1(O); Pulse Ox 98% on R/A; Pain 0/10; tl4 13:16 Body Mass Index 20.12 (46.72 kg, 152.4 cm) cm10 13:16 Pain Scale: Adult cm10 15:00 Pain Scale: Adult tl4 15:57 Pain Scale: Adult tl4 ED Course: 13:03 Patient arrived in ED. mr 13:05 Tarik Lao MD is Attending Physician. rt 13:17 Triage completed. cm10 13:18 Arm band placed on Patient placed in an exam room, on a stretcher. cm10 13:36 Client placed on continuous cardiac and pulse oximetry monitoring. NIBP monitoring cm10 applied. gambling monitor on. 13:36 Initial lab(s) drawn, by me, sent to lab. Inserted saline lock: 22 gauge in right cm10 forearm, using aseptic technique. Blood collected. 13:42 Lane Hancock, RN is Primary Nurse. tl4 13:42 Basic Metabolic Panel Sent. tl4 13:42 CBC with Diff Sent. tl4 13:42 LFT's Sent. tl4 13:42 Magnesium Sent. tl4 13:42 Troponin HS Sent. tl4 13:57 Patient has correct armband on for positive identification. Placed in gown. Bed in low tl4 position. Call light in reach. Side rails up X 1. Adult w/ patient. Provided Education on: ed process, call hyde. Door closed. Noise minimized. Moved to private room. Warm blanket given. 13:57 No provider procedures requiring assistance completed. tl4 15:43 EKG done, by ED staff, reviewed by Tarik Lao MD. em1 15:59 IV discontinued, intact, bleeding controlled, No redness/swelling at site. Pressure tl4 dressing applied. Administered Medications: 13:54 Drug: HydrALAZINE PO 25 mg PO once Route: PO; tl4 15:44 Follow up: Response: No adverse reaction tl4 Medication: 13:56 VIS not applicable for this client. tl4 Outcome: 15:32 Discharge ordered by . rt 15:59 Discharged to home ambulatory, with family, tl4 15:59 Condition: stable 15:59 Discharge instructions given to patient, Instructed on discharge instructions, follow up and referral plans. medication usage, Demonstrated understanding of instructions, follow-up care, medications, Prescriptions given X 1, 15:59 Patient left the ED. tl4 Signatures: Becca Calhoun, Reg Reg [place] em1 Tarik Lao MD MD rt Lisbet Dang, RN RN cm10 Lane Hancock RN RN tl4
[2023-09-29 16:29] VITALS: BP 139/51; TEMP 98.1; O2SAT 98
--- NOTE | 2023-09-30 14:13 | EKG ---
Test Date: 2023-09-29 Test Time: 15:37:28 Hearing Care Practitioner: KELSEY MEASUREMENT RESULTS: Intervals: Rate: 65 OH: 158 QRSD: 60 QT: 384 QTc: 399 [place]: P: -34 OH: 158 QRS: 82 T: 97 INTERPRETIVE STATEMENTS: Unusual P axis, possible ectopic atrial rhythm Low voltage QRS Abnormal ECG Compared to ECG 05/19/1995 04:27:00 Low QRS voltage now present Sinus bradycardia no longer present Electronically Signed On 09-30-23 14:11:21 CDT by Howard Durbin
== END 2023-09-29 15:59 | disposition home or self-care (01) ==
LOC: ER 13:00
DX: I10 Essential (primary) hypertension (principal); L22 Diaper dermatitis; R30.0 Dysuria
CPT/HCPCS: 36415; 80048; 80076; 81001; 83735; 84484; 85025; 93005; 99285